=== PATIENT | male | born 1945 | race Caucasian/White ===

== ENCOUNTER → 2017-08-19 | Outpatient (CLI) | payer MEDICARE, OTHER | LOC: GMAM 11:08 | PROVIDERS: ATTEND Family Medicine | DX: Z12.5 Encounter for screening for malignant neoplasm of prostate (principal) ==

== ENCOUNTER → 2017-08-25 | Outpatient (CLI) | payer MEDICARE, OTHER ==
--- NOTE | 2017-08-27 13:35 | US ---
Study: Ultrasound of the abdominal aorta. Indication: Abdominal aortic aneurysm. Technique: Multiplanar grayscale and Doppler sonographic images of the abdominal aorta obtained. Comparison: June 28, 2016. Impression: The proximal, mid, and distal abdominal aortic diameters measure up to 3.0 cm, 3.1 cm, and 2.9 cm respectively. Given differences in technique this appear similar to the prior examination. Sonographic surveillance recommended every 3 years. Electronically signed by: Daniel White MD 08/27/2017 1:34 PM [employer]
== END ==
LOC: US 08:59
PROVIDERS: ATTEND Family Medicine
DX: I71.4 Abdominal aortic aneurysm, without rupture (principal); I65.21 Occlusion and stenosis of right carotid artery; I10 Essential (primary) hypertension; I70.91 Generalized atherosclerosis; E78.2 Mixed hyperlipidemia

== ENCOUNTER → 2020-02-07 | Outpatient (CLI) | payer MEDICARE, OTHER | LOC: GMAM 10:42 | PROVIDERS: ATTEND Family Medicine | DX: Z12.5 Encounter for screening for malignant neoplasm of prostate (principal) ==